=== PATIENT | female | born 1995 | race Caucasian/White ===

== ENCOUNTER → 2017-01-22 09:10 | Inpatient (IN) | payer OTHER ==
--- NOTE | 2017-01-15 14:43 | NUR ---
IS 1 HR. Client was oriented to treatment process. She is working on BPSA. She expressed concerns about treatment based on her roommate from prison. She was in prison for the last month for failure to appear. Client was previously at [facility] approx. 2-3 years but admits she did not complete. She is concerned about getting clothes as she reports the clothes she is wearing she was arrested in and she had vomitted on them. Client asked numerous questions about treatment and this counselor's experience. She was brought her by methodist members who do bible study at the prison. She reports mom is in [place] and she believes will participate in family work. Client was directed to work on HOW TO GET STARTED IN TREATMENT after completing BPSA. She was excited to hear that she will receive a big book to keep.
--- NOTE | 2017-01-15 14:57 | NUR ---
ADMISSION NOTE Client is a 21 y/o, single female referred to treatment by drug court and brought here today by a buddhist volunteer from the [facility], where she had been for a month. Client resides in [place], where she has recently been homeless. Client states NKMA but does state an allergy to latex, and brings no medications with her today. Clielnt states DOC is meth, last used about 10 weeks ago. Client anticipates family group participation from her mom. Client was searched, no contraband found. Client did turn in her medical driver's license for safe keeping in the locked cabinet at the [employer] station. Rights/Responsibilities: Copy given and explained to client. Signed and accepted by client. Client oriented to physical lay out of the [facility] unit, given Big Book and admission packet. A Tal was assigned. Rafaela
--- NOTE | 2017-01-15 20:25 | NUR ---
Education: 1 Hour. Client attended Haider Hernandez "Unhealthy Families" video.
--- NOTE | 2017-01-15 23:02 | NUR ---
Client went on a walk for rec, participated in guided meditation, and attended the on unit A.A.Meeting. SE: Leaving senior living, coming to treatment, and getting welcomed immediately
--- NOTE | 2017-01-15 23:05 | NUR ---
Client tried to control tech while being checked in. Told tech she's OCD and gets "Angry" it was obvious to tech. Complained not enough drawers. Client was mad when she was told she couldn't have razor blade back. Commented I can't throw her things away. She left A.A.Meeting to get meeting cards.
--- NOTE | 2017-01-16 05:37 | NUR ---
tech note: client was motionless in no distress at all bed checks.
--- NOTE | 2017-01-16 08:59 | NUR ---
IS .5 HRS. Met with client to review her initial treatment plan as it was not yet available during yesterday's session. Client verbalized understanding, signed it and was given a copy. Client was also given her step 1 assignment and advised she could start on it when she completed her HOW TO GET STARTED IN TREATMENT. She clarified that it did not need to be completed by Thursday. Client asked about getting something for sleep and was advised no sleep meds are used on the unit but perhaps Melatonin if she was unable to sleep. She was also directed to use the sleep hygiene sheet provided to her.
--- NOTE | 2017-01-16 09:00 | NUR ---
FAMILY CONTACT Spoke with client's mom who advised she is preparing for a graduation so will not be able to visit on Thursday but maybe Sat. She expressed concerns about client's dishonesty such as telling mom she had completed assignments when at [facility] and counselor later advised mom that she did not complete any. Mom is encouraged to attend family work in order to hold client accountable. Mom reports that client lost custody of her son which client did not mention in session.
--- NOTE | 2017-01-16 12:00 | NUR ---
Group 1.5 hr/ 12:1 Clients heard peers share GS and Step 1 packets, this client was attentive did get ORIENTED to group rules and purpose. She shared she has 3 year old and has had 3 treatments. She last got drunk and high the day of [address], couldn't go cause high she thought. She indicates she is "socially awkward".
--- NOTE | 2017-01-16 14:51 | NUR ---
Tech Note: Client joined our group walk for exercise. Watched video titled "Sound of Silence" and is working on Getting Started.
--- NOTE | 2017-01-16 15:42 | NUR ---
Kelsey Note: Shortly after watching the 3:00 video "Sound of Silence" this client asked to speak to tech, away from the other clients. We walked away from the other clients and Myrna asked me if she could be told the content of videos before they are played. I explained that there is no description on the tape case and I hadn't seen it before. Also, the tapes are pre selected. The client was teary-eyed and thanked me. About 10 minutes later I asked Myrna if she wanted me to find a counselor she could talk to because the tape obviously struck a nerve with her. She declined the offer and I asked her to let me know if she changed her mind.
--- NOTE | 2017-01-16 16:00 | NUR ---
PEER REVIEWS 1.25 HRS: Clt participated in peer reviews and took a risk to give open and honest feedback to those receiving a review.
--- NOTE | 2017-01-16 20:32 | NUR ---
TECH NOTE: Client participated in reading of guidelines, watched TV/movies and attended optional offsite AA meeting SE: lunch
--- NOTE | 2017-01-17 04:32 | NUR ---
BED NOTE: Client was in bed, motionless with eyes closed all bed checks.
--- NOTE | 2017-01-17 16:24 | NUR ---
Tech Note: Client is working on Getting Started and had a visit from mother.
--- NOTE | 2017-01-17 20:27 | NUR ---
Tech note: Clt played a game for recreation and attended offsite AA mtg. Clt watched movie and played cards. Clt mom called leaving laurae she had made it home from visit juan j in the day and messege given to clt. SE was visit
--- NOTE | 2017-01-18 04:26 | NUR ---
BED NOTE: Client was in bed motionless with eyes closed all three bed checks.
--- NOTE | 2017-01-18 15:58 | NUR ---
Tech Note: Client participated in Big Book study. Client stated that she is working on, "How to Get Started in Treatment."
--- NOTE | 2017-01-18 23:07 | NUR ---
Tech Note: Client attended the A.A.Panel with Stephen You Client also attended the BRICKLAYER'S ASSISTANT Meeting SE: BRICKLAYER'S ASSISTANT Meeting
--- NOTE | 2017-01-19 04:38 | NUR ---
Bed Note: Client was laying in bed and motionless at all bed checks.
--- NOTE | 2017-01-19 07:51 | HP ---
ADMIT: 01/15/2017 RM/LOC: [facility] MR#: [id number] [address] [facility] [address] [place] [id number] [address] [place] [id number] History and Physical SEX: F AGE: 21 : 1995 DATE OF SERVICE: CHIEF COMPLAINT: Drug and alcohol dependency. HISTORY OF PRESENT ILLNESS: Ms. Norris is a 21-year-old single white female, admitted to residential level treatment at [facility] on January 15, 2017. She was admitted to treatment after 30 days in intermediate for failure to appear while in drug court for possession of Klonopin. She has had prior charges for criminal mischief, paraphernalia, and shoplifting. Henri's drug of choice on admission was methamphetamines. She first started using meth at around 19 years of age when she smoked with friends. Initially, she used it a couple of times a month. She states her heaviest use was later on from to when she snorted meth daily. States she is unsure of the quantity. She has done IV meth over 10 times. She admits to having sex for drugs and having sex with a dealer. Her last meth use was around 3 months ago. Her second drug of choice is cannabis. She first started smoking pot around 15 years of age with friends. High school, she smoked about 8th oz of pot daily and that was her heaviest use. States the last couple of years, she only uses 1 or 2 bowls a couple times a week. Her last marijuana use was around December 12. Third drug of choice is likely alcohol. She first started drinking at 15. In high school, she would drink every weekend usually 6 to 12 drinks. From to , she states she drank the heaviest when she would drink anything she could get and drink every night to the point she blacked out. She denies any alcohol withdrawal, seizures, DTs, or hallucinations. Her last use was around December 12. Fourth drug of choice is benzodiazepines. She first started using benzos at 15. She used them daily as prescribed. States she was given a couple different benzos, but ultimately was on Ativan, and would take up to 10 mg a day. States her last use was around 6 months ago. PAST MEDICAL HISTORY: Operations include a lateral release of the right knee at around 15. She had a suicide attempt with Tylenol and Zoloft overdose in December of 2014. ILLNESSES: Bipolar disorder, depression, and borderline personality disorder. MEDICATIONS: None. ALLERGIES: NONE. SOCIAL HISTORY: She is a 21-year-old single white female. She has a 3-year- old son, currently living with his father. She smokes a pack of cigarettes daily. ADMIT: 01/15/2017 RM/LOC: [id number] MR#: [id number] [address] [place] [id number] [address] [place] [address] History and Physical SEX: F AGE: 21 : 1995 FAMILY HISTORY: Includes drug and alcohol problems in numerous relatives along with heart attacks and strokes. She states she was adopted and does not know the details. REVIEW OF SYSTEMS: Remarkable for dysuria. Remainder review of systems, negative. PHYSICAL EXAMINATION: VITAL SIGNS: She is 5 feet 2 inches with a weight of 58.2 kg. Blood pressure 104/69 with a pulse of 82 and temperature of 92. GENERAL APPEARANCE: A 21-year-old white female. She is alert and oriented, pleasant, in no acute distress. HEENT: Pupils are reactive. Extraocular muscles are intact. TMs normal. Throat unremarkable. NECK: Without nodes or masses. HEART: Regular without murmur. LUNGS: Clear. ABDOMEN: Soft, nontender, and benign. BREASTS: Deferred. AND RECTAL: Deferred. EXTREMITIES: Reveal no clubbing, cyanosis, edema, tracks or splinter hemorrhages. NEURO: Reveals grossly normal light touch, strength, and DTRs. ASSESSMENT: 1. Stimulant use disorder, severe with history of IV use. 2. Cannabis use disorder, severe. 3. Alcohol use disorder, severe. 4. Benzodiazepine use disorder, moderate. 5. Bipolar disorder. 6. Borderline personality disorder. 7. Increased risk for HIV and hepatitis C and other blood-borne pathogens. 8. Tobacco use disorder. 9. Dysuria rule out urinary tract infection. PLAN: We will obtain a urine for UA with micro and do C and S if indicated. Obtain HIV and hepatitis C testing. She has been placed on multivitamin and thiamine. We will proceed with drug and alcohol abuse dependency treatment and counseling. Further evaluation and management based on course during hospitalization. Billy Palma MD/ eliazar JOB #: [id number] CC: Billy Palma, Attending Physician ADMIT: 01/15/2017 RM/LOC: [facility] MR#: [id number] [address] [place] [id number] [address] [place] [address] History and Physical SEX: F AGE: 21 : 1995 NO FAMILY PHYSICIAN, Family Physician
--- NOTE | 2017-01-19 09:50 | NUR ---
Tech note: Client is working on Getting Started
--- NOTE | 2017-01-19 12:56 | NUR ---
Education Note: Clients attended speaker for education Kit J.
--- NOTE | 2017-01-19 16:00 | NUR ---
RECOVERY 101 1 hr/ Clients discussed what they are learning from attending the 12 step recovery meetings about fundamentals of recovery, how to work a program such as: get and use a sponsor, work the steps, read C.A.L., HOW/honesty, openminded &willing, service work, HP/spirituality, opening up, slogans, serenity prayer, home group/meetings, etc. Clients shared and got into story telling at times. They learned 15% is addiction and 85% is the living problem so this is why keep going to meetings and working the program is vital.
--- NOTE | 2017-01-19 16:01 | NUR ---
PEER REVIEWS 1.25 HRS: Clt participated in peer reviews and took a risk to give open and honest feedback to those receiving a review.
--- NOTE | 2017-01-19 17:12 | NUR ---
Client came and asked tech for the stickers for the room name tags, I told her that the night techs put them on. She said no that doesn't work for me, I pick out what I want. I once again told her it's up to the night techs. She asked who was working tonight, I told her and she said they will let me. I did put this in my shift report.
--- NOTE | 2017-01-19 18:20 | NUR ---
Education: 1 Hour. Client attended "Feelings" lecture presented by staff.
--- NOTE | 2017-01-19 23:23 | NUR ---
tech note: client played Catch Phrase for recreation & attended onsite NA meeting. Client was seen sitting alone at table in the recreation room with a male peer MM before the NA meeting. This client went out to smoke hut with this male and was late for the NA meeting. This client asked the tech if she would be getting in trouble and acted like she wasn't concerned if she did. Client tried to get tech to give her new stickers for her room name tag-she is unhappy with the ones that tech put on when she came into treatment. Client has flipped the name tag over from the one made for her and her name is now rewritten on the back. Client c/o at med time that she shouldn't have to look at the sharp's container & was also trying to tell the tech how to take her meds from the pyxis. SE: NA meeting & powerlessness.
--- NOTE | 2017-01-20 04:47 | NUR ---
tech note: client was motionless in no distress at all bed checks.
--- NOTE | 2017-01-20 10:00 | NUR ---
COUNSELOR NOTE Client was noted to be coming out of rec room at 10 AM and was advised she was going to be late for group. She then began running down the melendez behind this counselor on the way to group and was advised to not run in the melendez. She continued to run past this counselor and advised she did not want to be late.
--- NOTE | 2017-01-20 14:00 | NUR ---
IS .25 HRS. Client was asked to come in from the smoke hut to staffing. She was angry about not being allowed to finish ciggarette. She complained about having to meet and repeatedly asked what it was about on the way down the melendez. She was advised she needs to come in to staffing and sit down to discuss to which she responded, "F*&*" She was advised she could just leave if she was not willing to meet meet with the counseling staff to discuss concerns. She came in and was defensive. When asked to identify what behaviors counselors would be concerned about, she did not respond. She was confronted on disrespect and arguing with staff as well as making comments about having sex with male peers. She denies that anything happened between her and male peer in the kitchen but admitted that she was talking about sex. She then complained about primary counselor and wants new counselor. Others attempted to help her to look at what she needs to work on but other than her "attitude" she did not identify specifics. She repeatedly asked to go finish her ciggarette and was confronted on throwing a fit to get her way to which she glared at that counselor.
--- NOTE | 2017-01-20 15:05 | NUR ---
Counselor note: This client was observed at the tech station after 3 PM asking for her box. Tech had advised she needed to get to programming and she argued that education counselor had said they had a minute. She was advised by both this counselor and tech that she was late. (All other peers were already in comm. room).
--- NOTE | 2017-01-20 15:07 | NUR ---
A.M. 1.5 hr group/ratio 09/10/ Group heard a step 1, how to get started, grief letter and discussed the importants of not glorifying as one client was confronted on this. This client gave male peer feedback that he needed to not make everything about him. She was noticed at beginning of group being fidgety and she was adjusting her straps and then spit cleaning her shoes and was told to stop, sit still and listen.
--- NOTE | 2017-01-20 15:45 | NUR ---
Relapse Prevention, 1.0 hours, Client attended and actively participated in relapse prevention education which focused on compulsive behaviors and relapse.
--- NOTE | 2017-01-20 16:00 | NUR ---
IS .25 HRS. Client was paged to counselor's office to review behavioral contract. She was slow to respond but did arrive. She was given a copy of contract and asked to sign original. She stated that she relates to male peer TR. She was advised she is to sit with female peers and NO one on one contact with any male peers. She was further advised that staff discussed that she may be in need of an all female treatment program if she is unable to be appropriate in [facility]. She stated she would run away from all female treatment facility. She questioned what happens if she is not willing to sign contract and was advised she would be discharged now. She did sign and was given a copy.
--- NOTE | 2017-01-20 16:12 | NUR ---
Tech Note: Client watched Part 2 of Predator by Constantino Rosales and had Relapse Prevention for 3:00 education. Assignment being worked on: Getting Started.
--- NOTE | 2017-01-20 16:24 | NUR ---
Education Note: Client attended Relapse Prevention presented by counselor Michelle.
--- NOTE | 2017-01-20 20:18 | NUR ---
Education: 1 hour lecture given by counselor on relapse.
--- NOTE | 2017-01-20 20:27 | NUR ---
tech note: Client went for walk for rec, participated in guided meditation and attended AA meeting
--- NOTE | 2017-01-20 23:38 | NUR ---
Tech Note: Client went on a walk for rec and attended the on unit A.A.Meeting. Client participated in Guided Meditation at 1930. SE: Fighting the urge to leave treatment/ the walk for rec
--- NOTE | 2017-01-21 04:57 | NUR ---
Bed note: client was in bed with eyes closed and no distress at all bed checks.
--- NOTE | 2017-01-21 09:15 | NUR ---
COUNSELOR NOTE It was reported by tech staff that this client was rude to him and was spending time with male peer TR at breakfast and in the smoke hut.
--- NOTE | 2017-01-21 10:21 | NUR ---
Tech notes: Client is working on Step 1
--- NOTE | 2017-01-21 13:49 | NUR ---
Educational note: Client watched a video for education.
--- NOTE | 2017-01-21 14:00 | NUR ---
LARGE AM GROUP 4:10/1.5 HR: A large group was held to address and difuse issues on the Unit that were initially brought up but not resolved in Community meeting. Some clients are confronting bad attitudes, violations of guidelines and three clandestine relationships that have been confronted multiple times, but the individuals continue the behavior. Clients were reminded that keeping secrets or covering for others just keeps us sick and is definitely old behavior. Efforts were made to focus on solutions vs. the problem. Some appeared to understand, while others continued to blame and accuse. This client squirmed around in her chair needing to be redirected three times to get rid of the pen she was holding and get her feet off of the chair. Client wanted to voice her opinion and perceptions that "staff needs to come down to her level and understand where she is coming from." Client was one of the individuals confronted for hanging around the male clients (one in particular) yet continues the behavior by sitting next to the said individual in the group. She did finally get up and move to another chair by a female.
--- NOTE | 2017-01-21 14:30 | NUR ---
IS .5 HRS. Client was asked to meet with this counselor and tools programmer and assembly line supervisor. Client was advised by them of drug court requirements. Client was confronted on breaking contract already and she stated she did sit by male peer in group. This counselor added that they also sat by each other at breakfast and client then put her had up to block her view of this counselor. She was confronted on that behavior and rolling her eyes by tools programmer. She was advised that if she is going to stay in treatment she needs to work with this counselor, follow all guidelines and conditions of contract as well as abide by drug court. Client stood up as if to leave but then immediately sat back down. When questioned if she was thinking of leaving, she denied and said she was just repositioning her pants to put her hands in her pockets, which she did. Client was more compliant and less argumentative than she was with staff yesterday. She thanked supervisors and addressed them quietly and politely such as "yes sandra" after being advised that she was not going to need to work on her attitude.
--- NOTE | 2017-01-21 17:20 | NUR ---
SPIRITUaL EDUCATION 1 HR. Clients were oriented to the group and learned difference between spirituality and adventist. We addressed GRATITUDE today with discussion, worksheet and activity.
--- NOTE | 2017-01-21 18:24 | NUR ---
Education: 1 Hour. Client attended "Self Esteem" lecture presented by staff.
--- NOTE | 2017-01-21 23:28 | NUR ---
tech note: client went on a walk for recreation & attended the onsite NA meeting. Client came into the client meeting late with two male peers. Client was out in the smoke hut waited till curfew to come for her scheduled medications. After curfew (23:15) client came to the tech station with her significant event & clothes that she doesn't want. SE: walk & NA.
[~2017-01-22] VITALS: Ht 157.5 cm; Wt 58.2 kg
--- NOTE | ~2017-01-22 | RESCARESUM ---
"PATIENT: HENRI JHAVERI | | [facility] UNIT #: [id number] | [address] AGE/SEX: 21 F : [birth year] | [address] | [place] [id number] ADMIT/REG DATE: 01/15/17 | ROOM: [facility] LOC: ADTC | ADT | Summary of Residential Care Primary Counselor: [facility] Date of Admission: 01/15/17 Date of Discharge: 01/22/17 Referral Source: [facility] Primary Care Provider Prior to Admission: none listed Admitting Diagnosis: F15.20 stimulant use disorder severe with history of IV use, F12.20 cannabis use disorder severe, F10.20 alcohol use disorder severe, 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 Billy Palam: borderline personality disorder, biopolar disorder, increased risk for HIB and hepatitis C and other blood-borne pathogens, dysuria rule out urinary tract infection Discharge Diagnosis: (UA completed) Goals Achieved: Client was discharged prior to completion of treatment plan goals and objectives. Continued Obstacles to Sobriety/Relapse Issues: impulsivenss, defiance, lack of healthy boundaries especially with males and/or resistant to treatment and structure. Family Issues Addressed: Client was discharged prior to family work. y Individual Therapy y Group Therapy y Educational Series on Substance Abuse n Parents/Significant Others Attended Family Program n Acute Medical Problems During the Course of Treatment n Transferred to Hospital During the Course of Treatment (admits) Accepting of Substance Abuse Problem Non-accepting of Substance Abuse Problem n Required Psychological or Psychiatric Consultation During the Course of Treatment Completed AA Step # 0 During This Level of Care Significant Incidences During Treatment: Client was placed on a behavioral contract on 01/20 after issues of sexual advances, demanding and disrespectful to staff, late to programming and not following guidelines. Client was advised refusal to follow contract would result in discharge. She questioned consequences of not signing contract and was advised she would be discharged immediately. She did sign, verbalized understanding of conditions of the contract and was provided a copy. Reason For Discharge: X Discharged Due to Noncompliance/Treatment Goals not Completed PATIENT: HENRI JHAVERI | | [facility] UNIT #: [id number] | [address] AGE/SEX: 21 F : [birth year] | [address] | [place] [address] ADMIT/REG DATE: 01/15/17 | ROOM: [facility] LOC: ADTC | ADTC | Summary of Residential Care Continuing Care Plan/Recommendations: Intensive Partial Care X Sponsor Partial Care X AA Meetings/NA Meetings Outpatient Co-dependency Services Therapeutic Community /[facility] [address] [facility] Marriage Counseling X Other-SEE BELOW Specific Continuing Care Plan: Client may be in need of an all female residential treatment program to give her the opportunity to focus on herself. She had difficulties with appropriate boundaries with males. She also struggled to abide by guidelines and schedule. Client's attitude became very negative especially directed towards primary counselor. She repeatedly failed to follow redirection and guidelines as set forth in her behavioral contract. Client's evaluation notes repeated admissions at various treatment facilities and being unable to complete any sucessfully. Client's behavior is aggressive and attempts to intimidate and manipulate others. PRIMARY COUNSELOR: Palak Gilbert, MARY, LADC"
--- NOTE | 2017-01-22 05:12 | NUR ---
Bed Note: Clt lay motionless in bed with eyes closed showing no distress at all bed checks.
--- NOTE | 2017-01-22 09:34 | NUR ---
COUNSELOR NOTE Due client's continued behaviors and not following her contract as noted by being late for client mtg., repeatedly being with male peers, going to her room during the day, not getting her meds until curfew, she was asked to leave treatment. She wanted to argue and then wanted to go out to smoke. Client was directed that she needed to pack and leave. She then went to the rec room despite being told to not do so. She was asked again to leave, went to the tech station and then returned to [facility] male peers despite being told to not do so by program supervisor. She was advised again to leave. She advised she could not take her belongings with her and will return for them. She was instructed that she is to wait in the lobby and not come on the unit. Staff will bring her belongings out to her when she returns. Drug court had been advised of her discharge and called back to advised that client needs to report to [facility] but she had already left the unit.
--- NOTE | 2017-01-22 10:14 | NUR ---
DISCHARGE NOTE Client was released from treatment due to non-compliance. Client was given all personal property, but left it at the tech station, stating that she would return for it.
--- NOTE | 2017-03-07 11:43 | DS ---
ADMIT: 01/15/2017 RM/LOC: [facility] MR#: [id number] [address] [facility] [address] [place] [id number] [address] [place] [address] General Discharge Summary SEX: F AGE: 21 : 1995 ADMISSION DATE: 01/15/2017 DISCHARGE DATE: 01/22/2017 INDICATION FOR HOSPITALIZATION: Henri is a 21-year-old single, white female, admitted to residential level treatment at [facility] on January 15, 2017 after 30 days in alf for failure to appear in court for possession of Klonopin. She had numerous prior charges including criminal mischief, paraphernalia, and shoplifting. Henri's drug of choice is methamphetamines. Second drug of choice is cannabis. Third drug of choice is alcohol. Fourth drug of choice is benzodiazepines. Please see her admission H and P for the details regarding her history of present illness, past medical history, physical exam, and assessment at time of hospitalization. HOSPITAL COURSE: On admission, Henri was admitted to our residential level treatment [facility]. She was started on multivitamin and thiamine given her history of alcohol abuse and dependency. Melatonin was ordered for sleep disorder. UA was ordered due to concerns of a possible UTI. HIV and hepatitis C testing were ordered due to increased risk for blood borne pathogens. During treatment, Henri's primary counselor assigned was Palak Gilbert. She initiated individual and group therapy sessions on drug and alcohol abuse dependency. She was overall partially accepting of her substance abuse disorder. She completed no steps of Alcoholics Anonymous. No family portions of her treatment program were completed. Issues regarding inappropriate sexual advances demanding behaviors and disrespect during treatment were addressed. She ultimately refused to sign a contract and was discharged due to noncompliance with treatment goals as outlined. Reason for discharge was noncompliance with treatment goals as outlined. It was recommended she be admitted to in all female residential level treatment program. Concerns regarding boundaries between her and male peers were repeatedly addressed. It was recommended she complete a residential level treatment program with sponsor assignment and active AA and NA meeting evaluation. LABORATORY AND X-RAY DATA: Include January 19 UA showing 3+ leukocytes, 20 wbc's, and 27 rbcs. Hepatitis C on January 19 that was negative, and a urine culture on January 19 showing less than 1000 gram positive organisms. DISCHARGE MEDICATIONS: None. She left due to noncompliance with treatment goals. Aftercare recommendations are as outlined. FINAL DISCHARGE DIAGNOSES: Include: 1. Stimulant use disorder, severe with history of IV use. ADMIT: 01/15/2017 RM/LOC: [facility] MR#: [id number] [address] [address] [address] [place] [address] General Discharge Summary SEX: F AGE: 21 : 1995 2. Cannabis use disorder, severe. 3. Alcohol use disorder, severe. 4. Benzodiazepine use disorder, moderate. 5. Bipolar disorder. 6. Borderline personality disorder. 7. Increased risk for blood borne pathogens with negative testing. 8. Tobacco use disorder. PROCEDURES: Include attempts of drug and alcohol abuse dependency treatment and counseling with failure to comply with treatment regimen as outlined with subsequent discharge prematurely. Please see her hospital record for the details. Billy Palma MD/ eliazar JOB #: [id number] CC: Billy Palma MD, Attending Physician FAMILY PHYSICIAN, Family Physician
== END | disposition home or self-care (01) | DRG 895 ==
LOC: ADTC
PROVIDERS: ADMIT Family Medicine
PROC: HZ43ZZZ Group Counseling for Substance Abuse Treatment, 12-Step (ICD-10-PCS; principal; 2017-01-15)
PROC: HZ34ZZZ Individual Counseling for Substance Abuse Treatment, Interpersonal (ICD-10-PCS; principal; 2017-01-15)
DX: F15.20 Other stimulant dependence, uncomplicated (principal); F13.20 Sedative, hypnotic or anxiolytic dependence, uncomplicated; F12.20 Cannabis dependence, uncomplicated; F10.20 Alcohol dependence, uncomplicated; F31.9 Bipolar disorder, unspecified; F17.210 Nicotine dependence, cigarettes, uncomplicated; Z72.89 Other problems related to lifestyle; Z65.3 Problems related to other legal circumstances; Z63.72 Alcoholism and drug addiction in family